=== PATIENT | female | born 1995 | race Caucasian/White ===

== ENCOUNTER 2016-09-22 05:11 | Emergency (ER) | payer MEDICAID ==
[~2016-09-22] VITALS: Ht 160 cm; Wt 60.0 kg
[2016-09-22 05:15] VITALS: BP 107/65; PULSE 91; RESP 18; TEMP 98.2
[2016-09-22] MEDS ORDERED: TETANUS/DIPHTHERIA TOXOID ADULT 0.5 ML VIAL IM ONE (05:30)
--- NOTE | 2016-09-22 05:39 | PD ---
HPI Chief Complaint: Psychiatric Symptoms Time Seen by Provider: 05:34 Travel History International Travel<30 days: No Contact w/Intl Traveler<30days: No Traveled to known affect area: No History of Present Illness HPI 21-year-old female presents to emergency department after performing self mutilation cutting. The patient here denies suicidal ideation. Patient had been placed under Quintero act by PD. The patient had been drinking alcohol. She states that she was grieving over her husbands passing approximately one year ago. She is also having problems with her new baby sonja. She also states that she feels that she may be . The patient had cut her right wrist with a knife. She denies any toxic ingestions. She does admit to marijuana. She does smoke cigarettes. Patient has a history of cutting in the past. She denies taking medications at this time. Unsure last tetanus shot. Patient does state that she's had a history of asthma and may require breathing treatments. She does have episodes of chest pain and shortness of breath at times. She denies any fever or chills. No nausea vomiting. No abdominal pain or urinary symptoms. [facility]LY [facility] Past Medical History Narrative Medical Asthma, cutting Anemia: Yes Asthma: Yes Tetanus Vaccination: Unknown Influenza Vaccination: No ?: Unknown LMP: 07/30 Past Surgical History Narrative Surgical Section: Yes Social History Alcohol Use: Yes Tobacco Use: Yes Substance Use: Yes (marijuana) Allergies-Medications (Allergen,Severity, Reaction): Coded Allergies: Latex (Verified Allergy, Unknown, 09/22/16) Review of Systems Except as stated in HPI: all other systems reviewed are Neg Psychiatric: Positive: Depression, Suicidal Ideations, Mood Disorder, Substance Abuse, No: Anxiety, Disorder of Thought, Homicidal Ideation Physical Exam Narrative GENERAL: Well-nourished, well-developed patient. SKIN: Warm and dry. Patient has suicide gesture cutting to the right dorsal and volar forearm. There is a 3 cm laceration to the dorsal forearm as well as a 1.5 cm laceration of the volar forearm. HEAD: Normocephalic and patient has a soft tissue abrasion contusion to the anterior forehead. EYES: No scleral icterus. No injection or drainage. ENT: No nasal drainage noted. Mucous membranes pink. Airway patent. NECK: Supple, trachea midline. Moves head freely without obvious discomfort. CARDIOVASCULAR: Regular rate and rhythm without murmurs, gallops, or rubs. RESPIRATORY: Breath sounds equal bilaterally. No accessory muscle use. GASTROINTESTINAL: Abdomen soft, non-tender, nondistended. EXTREMITIES: No cyanosis or edema. Patient is neurovascularly intact. She is able to move her fingers freely. BACK: Nontender without obvious deformity. No CVA tenderness. NEURO: Patient is alert and oriented. no sensorimotor deficits. Nonfocal. Normal speech. PSYCH: No delusions. No auditory or visual hallucinations. Data Data Last Documented VS Vital Signs Date Time Temp Pulse Resp B/P Pulse Ox O2 Delivery O2 Flow Rate FiO2 09/22/16 05:18 98 18 09/22/16 05:15 98.2 107/65 Orders Complete Blood Count With Diff (09/22/16 05:21) Comprehensive Metabolic Panel (09/22/16 05:21) Ed Urine Pregnancytest Poc (09/22/16 05:21) Psych Screen (09/22/16 05:21) Drug Screen, Random Urine (09/22/16 05:21) Alcohol (Ethanol) (09/22/16 05:21) Salicylates (Aspirin) (09/22/16 05:21) Tylenol (Acetaminophen) (09/22/16 05:21) Tetanus/Diphtheria Tox Adult (Tetanus/Di (09/22/16 05:30) Diet Regular Basic (09/22/16 Breakfast) Labs Laboratory Tests Test 09/22/16 05:37 White Blood Count 9.2 TH/MM3 Red Blood Count 3.62 MIL/MM3 Hemoglobin 11.8 GM/DL Hematocrit 34.8 % Mean Corpuscular Volume 96.1 FL Mean Corpuscular Hemoglobin 32.6 PG Mean Corpuscular Hemoglobin 34.0 % Concent Red Cell Distribution Width 13.7 % Platelet Count 232 TH/MM3 Mean Platelet Volume 8.1 FL Neutrophils (%) (Auto) 74.2 % Lymphocytes (%) (Auto) 19.8 % Monocytes (%) (Auto) 4.5 % Eosinophils (%) (Auto) 1.0 % Basophils (%) (Auto) 0.5 % Neutrophils # (Auto) 6.8 TH/MM3 Lymphocytes # (Auto) 1.8 TH/MM3 Monocytes # (Auto) 0.4 TH/MM3 Eosinophils # (Auto) 0.1 TH/MM3 Basophils # (Auto) 0.0 TH/MM3 CBC Comment DIFF FINAL Differential Comment Sodium Level 144 MEQ/L Potassium Level 3.5 MEQ/L Chloride Level 108 MEQ/L Carbon Dioxide Level 24.3 MEQ/L Anion Gap 12 MEQ/L Blood Urea Nitrogen 8 MG/DL Creatinine 0.63 MG/DL Estimat Glomerular Filtration 118 ML/MIN Rate Random Glucose 94 MG/DL Calcium Level 8.4 MG/DL Total Bilirubin 0.3 MG/DL Aspartate Amino Transf 20 U/L (AST/SGOT) Alanine Aminotransferase 14 U/L (ALT/SGPT) Alkaline Phosphatase 60 U/L Total Protein 7.9 GM/DL Albumin 3.9 GM/DL Salicylates Level LESS THAN 1.7 MG/DL Acetaminophen Level LESS THAN 2.0 MCG/ML Ethyl Alcohol Level 268 MG/DL [facility] Medical Decision Making Medical Screen Exam Complete: Yes Emergency Medical Condition: Yes Medical Record Reviewed: Yes Interpretation(s) HCG: Positive Laboratory Tests Test 09/22/16 05:37 White Blood Count 9.2 TH/MM3 Red Blood Count 3.62 MIL/MM3 Hemoglobin 11.8 GM/DL Hematocrit 34.8 % Mean Corpuscular Volume 96.1 FL Mean Corpuscular Hemoglobin 32.6 PG Mean Corpuscular Hemoglobin 34.0 % Concent Red Cell Distribution Width 13.7 % Platelet Count 232 TH/MM3 Mean Platelet Volume 8.1 FL Neutrophils (%) (Auto) 74.2 % Lymphocytes (%) (Auto) 19.8 % Monocytes (%) (Auto) 4.5 % Eosinophils (%) (Auto) 1.0 % Basophils (%) (Auto) 0.5 % Neutrophils # (Auto) 6.8 TH/MM3 Lymphocytes # (Auto) 1.8 TH/MM3 Monocytes # (Auto) 0.4 TH/MM3 Eosinophils # (Auto) 0.1 TH/MM3 Basophils # (Auto) 0.0 TH/MM3 CBC Comment DIFF FINAL Differential Comment Sodium Level 144 MEQ/L Potassium Level 3.5 MEQ/L Chloride Level 108 MEQ/L Carbon Dioxide Level 24.3 MEQ/L Anion Gap 12 MEQ/L Blood Urea Nitrogen 8 MG/DL Creatinine 0.63 MG/DL Estimat Glomerular Filtration 118 ML/MIN Rate Random Glucose 94 MG/DL Calcium Level 8.4 MG/DL Total Bilirubin 0.3 MG/DL Aspartate Amino Transf 20 U/L (AST/SGOT) Alanine Aminotransferase 14 U/L (ALT/SGPT) Alkaline Phosphatase 60 U/L Total Protein 7.9 GM/DL Albumin 3.9 GM/DL Salicylates Level LESS THAN 1.7 MG/DL Acetaminophen Level LESS THAN 2.0 MCG/ML Ethyl Alcohol Level 268 MG/DL Differential Diagnosis MDM: High Differential diagnoses: Schizophrenia, schizoaffective disorder, bipolar, anxiety, depression, adjustment reaction, mood disorder NOS, ODD, depressive disorder NOS, dementia, dementia with agitation, psychosis NOS, substance induced mood disorder, intermittent explosive disorder, Asperger syndrome, infection,electrolyte abnormality, malingering. Narrative Course Mental health screening discussed with the patient. Psychiatric screen ordered. The patient is been medically cleared. The patient's test is positive. She is intoxicated and has performed self mutilation cutting. This is medical clearance for psychological evaluation, , cutting. Diagnosis Primary Impression: Medical clearance for psychiatric admission Additional Impressions: Qualified Code: Z3A.49 - More than 42 weeks gestation of Self-mutilation Condition: Stable Tyrell Garrett September 22, 2016 05:39
[2016-09-22 05:49] LABS: AUTOMATED NEUTROPHIL # 6.8 TH/MM3 (1.8-7.7); BASOPHIL % 0.5 % (0.0-2.0); EOSINOPHIL # 0.1 TH/MM3 (0-0.4); HEMATOCRIT 34.8 % (35.0-46.0); HEMO FLAGS DIFF FINAL; LYMPH % 19.8 % (9.0-44.0); LYMPHOCYTE # 1.8 TH/MM3 (1.0-4.8); MEAN CELL VOLUME 96.1 FL (80.0-100.0); MEAN CORPUSCULAR HEMOGLOBIN 32.6 PG (27.0-34.0); MONO % 4.5 % (0.0-8.0); NEUT % 74.2 % (16.0-70.0); PLATELET COUNT 232 TH/MM3 (150-450); RED BLOOD COUNT 3.62 MIL/MM3 (4.00-5.30); RED CELL DISTRIBUTION WIDTH 13.7 % (11.6-17.2); WHITE BLOOD COUNT 9.2 TH/MM3 (4.0-11.0)
[2016-09-22 06:08] LABS: ANION GAP 12 MEQ/L (5-15)
[2016-09-22 06:14] LABS: ACETAMINOPHEN LESS THAN 2.0 MCG/ML (10.0-30.0); ALKALINE PHOSPHATASE 60 U/L (45-117); ALT (GPT) 14 U/L (10-53); AST (GOT) 20 U/L (15-37); BICARBONATE 24.3 MEQ/L (21.0-32.0); BLOOD UREA NITROGEN 8 MG/DL (7-18); CHLORIDE 108 MEQ/L (98-107); GLOMERULAR FILTRATION RATE 118 ML/MIN (>89); POTASSIUM 3.5 MEQ/L (3.5-5.1); SODIUM (NA) 144 MEQ/L (136-145); TOTAL BILIRUBIN ADULT 0.3 MG/DL (0.2-1.0)
[2016-09-22 11:16] LABS: AMPHETAMINE, URINE NEG (NEG); BARBITURATES, URINE NEG (NEG); COCAINE, URINE NEG (NEG)
[2016-09-22] MEDS ORDERED: IBUPROFEN 800 MG TAB PO ONE (13:00)
[2016-09-22 16:46] VITALS: BP 100/56; PULSE 98; RESP 18; TEMP 99.1; O2SAT 98
[2016-09-22 16:49] VITALS: BP 100/56; TEMP 99.1
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
== END 2016-09-22 17:25 | disposition home or self-care (01) ==
LOC: NEPD 05:11 → NEPJ 17:25
DX: O26.899 Other specified pregnancy related conditions, unspecified trimester (principal); O99.310 Alcohol use complicating pregnancy, unspecified trimester; O99.330 Smoking (tobacco) complicating pregnancy, unspecified trimester; F43.20 Adjustment disorder, unspecified; Z91.5 Personal history of self-harm; F17.210 Nicotine dependence, cigarettes, uncomplicated; F10.10 Alcohol abuse, uncomplicated; F12.90 Cannabis use, unspecified, uncomplicated; J45.909 Unspecified asthma, uncomplicated; D64.9 Anemia, unspecified; Z23 Encounter for immunization
CPT/HCPCS: 80053; 80307; 84703; 85025; 90471; 90714